=== PATIENT | female | born 1980 | race Caucasian/White ===

== ENCOUNTER → 2018-07-20 | Outpatient (CLI) | payer MEDICAID ==
[2018-07-20 09:26] LABS: Basophils # (A) 0.1 k/uL (0-0.2); Basophils % (A) 1 %; Eosinophils # (A) 0.2 k/uL (0-0.7); Eosinophils % (A) 4 %; HCT 39.3 % (34.0-46.0); HGB 12.7 gm/dL (11.4-16.0); Lymphocytes # (A) 1.9 k/uL (1.0-4.8); Lymphocytes % (A) 31 %; MCH 30.4 pg (25.0-35.0); MCHC 32.4 g/dL (31.0-37.0); Mean Platelet Volume 6.4; Monocytes # (A) 0.4 k/uL (0-1.0); Monocytes % (A) 7 %; Neutrophils # (A) 3.5 k/uL (1.3-7.7); Neutrophils % (A) 55 %; Platelet Count 298 k/uL (150-450); RBC 4.18 m/uL (3.80-5.40); RDW 13.1 % (11.5-15.5); WBC 6.2 k/uL (3.8-10.6)
[2018-07-20 09:40] LABS: ALT 31 U/L (9-52); AST 26 U/L (14-36); Albumin 3.9 g/dL (3.5-5.0); Alkaline Phosphatase 71 U/L (38-126); Anion Gap 7 mmol/L; Blood Urea Nitrogen 11 mg/dL (7-17); Calcium 9.4 mg/dL (8.4-10.2); Carbon Dioxide 27 mmol/L (22-30); Chloride 105 mmol/L (98-107); Cholesterol 177 mg/dL (<200); Creatine Kinase 96 U/L (30-135); Glucose 89 mg/dL (74-99); HDL Cholesterol 62 mg/dL (40-60); LDL Cholesterol,Calculated 92 mg/dL (0-99); Potassium 4.7 mmol/L (3.5-5.1); Sodium 139 mmol/L (137-145); Total Bilirubin 0.6 mg/dL (0.2-1.3); Triglycerides 113 mg/dL (<150)
[2018-07-20 11:32] LABS: Erythrocyte Sedimentation Rate 7 mm/hr (0-20)
[2018-07-20 18:19] LABS: HIV 1 AB Non-Reactive (Non-Reactive); HIV AB P24 Non-Reactive (Non-Reactive); HIV P24 AG Non-Reactive (Non-Reactive)
[2018-07-20 19:44] LABS: Rheumatoid Factor 12 IU/mL (0-15)
== END ==
LOC: LABWHC1 08:26
PROVIDERS: ATTEND Family Medicine
DX: Z00.00 Encounter for general adult medical examination without abnormal findings (principal); E66.9 Obesity, unspecified; M62.89 Other specified disorders of muscle; M25.50 Pain in unspecified joint; R53.83 Other fatigue
CPT/HCPCS: 36415; 80053; 80061; 82550; 82607; 85025; 85652; 86038; 86431; 87390

== ENCOUNTER → 2021-01-16 | Outpatient (CLI) | payer MEDICAID ==
--- NOTE | 2021-01-16 14:29 | MM ---
Reason for exam: clinical finding. Baseline mammogram. History: Family history of breast cancer in maternal grandmother at age 50. Took hormonal contraceptives for 20 years. Physical Findings: Nurse did not find any significant physical abnormalities on exam. MG 3D Diag Mammo W/Cad SCARLET Bilateral CC and MLO view(s) were taken. There are scattered fibroglandular densities. There is no discrete abnormality. These results were verbally communicated with the patient and result sheet given to the patient on 01/16/21. ASSESSMENT: Benign, BI-RAD 2 RECOMMENDATION: Routine screening mammogram of both breasts in 1 year.
== END | disposition home or self-care (01) ==
LOC: RADMAMWWP 13:45
PROVIDERS: ATTEND Obstetrics & Gynecology Obstetrics
DX: Z80.3 Family history of malignant neoplasm of breast (principal)
CPT/HCPCS: 77062; 77066

== ENCOUNTER → 2021-03-26 | Outpatient (CLI) | payer MEDICAID | END | disposition home or self-care (01) | LOC: LABWHC1 14:17 | PROVIDERS: ATTEND Dermatology | DX: L70.0 Acne vulgaris (principal) | CPT/HCPCS: 36415; 84132 ==

== ENCOUNTER → 2021-05-05 | Outpatient (CLI) | payer MEDICAID | END | disposition home or self-care (01) | LOC: LABWHC1 12:24 | PROVIDERS: ATTEND Dermatology | DX: L70.0 Acne vulgaris (principal) | CPT/HCPCS: 36415; 84132 ==

== ENCOUNTER → 2021-06-16 | Outpatient (CLI) | payer MEDICAID | END | disposition home or self-care (01) | LOC: LABWHC1 14:25 | PROVIDERS: ATTEND Emergency Medicine | DX: Z20.822 Contact with and (suspected) exposure to COVID-19 (principal) | CPT/HCPCS: 87635; C9803 ==

== ENCOUNTER → 2021-06-17 | Outpatient (CLI) | payer MEDICAID | END | disposition home or self-care (01) | LOC: LABWHC1 14:25 | PROVIDERS: ATTEND Emergency Medicine | DX: Z20.822 Contact with and (suspected) exposure to COVID-19 (principal) | CPT/HCPCS: 87635; C9803 ==

== ENCOUNTER → 2022-05-20 | Outpatient (CLI) | payer MEDICAID | END | disposition home or self-care (01) | LOC: LABWHC1 07:11 | PROVIDERS: ATTEND Dermatology Procedural Dermatology | DX: L70.0 Acne vulgaris (principal) | CPT/HCPCS: 36415; 84132 ==

== ENCOUNTER → 2022-12-29 | Outpatient (CLI) | payer MEDICAID, OTHER ==
--- NOTE | 2022-12-29 10:19 | MR ---
EXAMINATION TYPE: MR knee LT wo con DATE OF EXAM: 12/29/2022 COMPARISON: X-ray 12/27/2022 HISTORY: LT KNEE PAIN X 5YRS, OVERUSE TECHNIQUE: Multiplanar, multisequence imaging of the left knee is performed without IV contrast. FINDINGS: There is hypertrophic change and narrowing of the lateral patellar facet. Mild to moderate narrowing of the medial compartment of the knee joint. There is loss of articular cartilage along the medial an d femoral articular surface compatible with chondromalacia. There is a moderate suprapatellar bursal fluid collection. Quadriceps and patellar tendons are intact . There is grade II chondromalacia involving the medial patellar facet. Retinaculum are intact. Anterior cruciate and posterior cruciate ligaments intact. Medial collateral and lateral collateral l igaments intact. There is a small amount of fluid in the joint space. Medial and lateral meniscus appear intact IMPRESSION: 1. 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 2. No evidence of ligamentous injury or meniscal tear. 3. There is a moderate suprapatellar bursal fluid collection
== END | disposition home or self-care (01) ==
LOC: RADMRIMAIN 08:50
PROVIDERS: ATTEND Orthopaedic Surgery
DX: M17.12 Unilateral primary osteoarthritis, left knee (principal); M94.262 Chondromalacia, left knee; M94.8X6 Other specified disorders of cartilage, lower leg

== ENCOUNTER → 2023-04-22 | Outpatient (CLI) | payer MEDICAID, OTHER ==
--- NOTE | 2023-04-25 08:13 | MM ---
Reason for Exam: Screening (asymptomatic). Last mammogram was performed 2 year(s) and 3 month(s) ago. Patient History: Menarche at age 9. First Full-Term at age 22. Patient used Hormonal Contraceptives for 20 years. Maternal grandmother had breast cancer, age 50. Last menstrual period: 03/16/2023 Risk Values: Bertha 5 year model risk: 0.8%. NCI Lifetime model risk: 9.5%. Prior Study Comparison: 01/16/2021 Bilateral Diagnostic Mammogram, [facility]. Tissue Density: There are scattered fibroglandular densities. Findings: Analyzed By CAD. There is no suspicious group of microcalcifications or new suspicious mass in either breast. Overall Assessment: Benign, BI-RAD 2 Management: Screening Mammogram of both breasts in 1 year. . Patient should continue monthly self-breast exams. A clinical breast exam by your physician is recommended on an annual basis. This exam should not preclude additional follow-up of suspicious palpable abnormalities. Note on Bertha scores and lifetime risk: 1. A Bertha score greater than 3% is considered moderate risk. If this is the case, consider specialist referral to assess eligibility for a risk reducing agent. 2. If overall lifetime risk for the development of breast cancer is 20% or higher, the patient may qualify for future screening with alternating mammogram and breast MRI. Electronically signed and approved by: Brant Davenport M.D. Radiologis
== END | disposition home or self-care (01) ==
LOC: RADMAMWWP 13:53
PROVIDERS: ATTEND Family Medicine
DX: Z12.31 Encounter for screening mammogram for malignant neoplasm of breast (principal); Z80.3 Family history of malignant neoplasm of breast
CPT/HCPCS: 77063; 77067

== ENCOUNTER → 2023-09-07 | Outpatient (CLI) | payer MEDICAID | END | disposition home or self-care (01) | LOC: LABWHC1 10:49 | PROVIDERS: ATTEND Dermatology | DX: L70.0 Acne vulgaris (principal) | CPT/HCPCS: 36415; 84132 ==